=== PATIENT | male | born 1950 | race Caucasian/White ===

== ENCOUNTER 2024-11-13 10:52 | Day surgery (SDC) | payer OTHER ==
[~2024-11-13] VITALS: Ht 180.3 cm; Wt 82.4 kg
[2024-11-13] VITALS (10 sets, daily range): BP systolic 119–141; BP diastolic 79–90; PULSE 69–92; RESP 12–18; TEMP 98.1; O2SAT 92–98
[2024-11-13] MEDS ORDERED: LORazepam 0.5 MG tablet PO PRN (11:35)
[2024-11-13] MEDS ORDERED: diphenhydrAMINE 25mg capsule PO PRN (11:35)
[2024-11-13] MEDS ORDERED: normal saline 1,000 ML IV SCH (11:35)
[2024-11-13] MEDS ORDERED: midazolam 1 mg/ML 2ml injection ONE ×2 (12:46→13:47)
[2024-11-13] MEDS ORDERED: LIDOcaine 1% (10mg/ml) 2ml vial ONE (12:46)
[2024-11-13] MEDS ORDERED: fentaNYL/PF 50MCG/1 ML 2ML syringe ONE (12:46)
[2024-11-13] MEDS ORDERED: verapamil 2.5 mg/ml inj IV ONE (12:46)
[2024-11-13] MEDS ORDERED: heparin 1,000unit/ml 10ml vial 10 ML ONE (12:47)
[2024-11-13] MEDS ORDERED: iohexol 350MG/ML 100ml bottle IV ONE (12:47)
[2024-11-13] MEDS ORDERED: nitroGLYCERIN 500mcg/5mL D5W 5 ML IV ONE (12:53)
--- NOTE | 2024-11-13 12:56 | ELECTROCARDIOGRAPH REPORT ---
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 JAYLENE Moreira Measurements Intervals [place] Rate: 91 P: -2 WV: 192 QRS: -34 QRSD: 102 T: 32 QT: 399 QTc: 492 Interpretive Statements Sinus rhythm Inferior infarct, old Electronically Signed On 11-13-2024 17:36:[address] JAYLENE Moreira Please click the below link to view image of tracing.
[2024-11-13] MEDS ORDERED: ACET-1025 PO (13:32)
[2024-11-13] MEDS ORDERED: DILT-36 PO (13:32)
[2024-11-13] MEDS ORDERED: TAMS-55 PO (13:33)
[2024-11-13] MEDS ORDERED: POTA-207 PO (13:33)
[2024-11-13] MEDS ORDERED: FLEC50TA PO (13:34)
[2024-11-13] MEDS ORDERED: OMEP40CA21 PO (13:35)
[2024-11-13] MEDS ORDERED: RIVA20TA PO (13:35)
[2024-11-13] MEDS ORDERED: LOSA-418 PO (13:36)
[2024-11-13] MEDS ORDERED: DIAZ10TA4 PO (13:37)
[2024-11-13] MEDS ORDERED: BUPR150T8 PO (13:37)
[2024-11-13] MEDS ORDERED: ATOR10TA87 PO (13:38)
[2024-11-13 13:46] LABS: ALBUMIN 3.6 G/DL (3.4-5.0); ANION GAP 9 (8-16); BASOPHILS % (AUTO) 0.8 % (0-1); BLOOD UREA NITROGEN 16 MG/DL (7-18); BUN/CREATININE RATIO 21.1 (10.0-20.0); CALCIUM 8.9 MG/DL (8.5-10.1); CHLORIDE 108 MMOL/L (99-107); CREATININE 0.76 MG/DL (0.60-1.10); EOSINOPHILS # (AUTO) 0.1 X10'3 (0-0.9); EOSINOPHILS % (AUTO) 1.3 % (0-6); GLUCOSE 94 MG/DL (70-104); HEMATOCRIT 44.3 % (42.0-52.0); LYMPHOCYTES # (AUTO) 1.2 X10'3 (1.1-4.8); LYMPHOCYTES % (AUTO) 19.6 % (21-51); MEAN CORPUSCULAR HEMOGLOBIN 30.1 PG (27.0-31.0); MEAN CORPUSCULAR HGB CONC 33.9 g/dL (33.0-36.5); MEAN CORPUSCULAR VOLUME 88.8 FL (78-98); MEAN PLATELET VOLUME 7.5 FL (7.4-10.4); MONOCYTES # (AUTO) 0.5 X10'3 (0-0.9); MONOCYTES % (AUTO) 8.9 % (2-12); NEUTROPHILS # (AUTO) 4.1 X10'3 (1.8-7.7); NEUTROPHILS % (AUTO) 69.4 % (42-75); PLATELET COUNT 296 X10'3 (140-440); POTASSIUM 3.3 MMOL/L (3.5-5.1); RED BLOOD COUNT 4.98 X10'6 (4.70-6.10); RED CELL DISTRIBUTION WIDTH 15.5 % (11.5-14.5); SODIUM 145 MMOL/L (135-145); TOTAL CARBON DIOXIDE 27.9 MMOL/L (24-32); eCRCL 94 ML/MIN; eGFR > 90 ML/MIN
[2024-11-13 13:51] LABS: APTT 29 SECONDS (22-32); INR 1.1 INR; PROTHROMBIN TIME 11.1 SECONDS (9.0-12.0)
--- NOTE | 2024-11-13 14:04 | CARDIAC CATH REPORT ---
Cardiac Cath Report Providers to CC CC: PAULO AMRK MD Procedure Comments: 1. Right Heart Catheterization 2. Selective Coronary Angiography 3. Right Brachial vein access 4. Right Radial artery access Brief History/Indications: 74yo man with HTN, HLD, Afib, Severe symptomatic aortic stenosis referred for evaluation prior to consideration of AVR. Techniques: After informed consent was obtained, the patient was brought to the cardiac catheterization laboratory and prepped and draped in usual sterile fashion for left heart catheterization and other procedures mentioned above. The right wrist and right AC fossa were anesthetized with 1% Lidocaine. The right AC IV was exchanged over a wire for an 6fr sheath. The right radial artery accessed via the Seldinger technique after which a 6Fr sheath was placed. The Oneco was advanced via the right AC sheath to the right atrium, the right ventricle, the pulmonary artery, and wedge position. Through the 6Fr right radial sheath, a TIG was used to engage the left coronary artery and the right coronary artery. At the conclusion of the case the sheath was removed and hemostasis obtained with a VascBand for the radial sheath and manual compression for the brachial sheath. Findings Findings: HEMODYNAMICS: RA: 2 mmHg RV: 30/2, RVEDP 5 mmHg PA: 15/1, mPAP 7 mmHg PCWP: 1 mmHg(V-waves to 3mmHg) TP mmHg DP mmHg Ao: 92/60, MAP 68 mmHg HR: 98 bpm LV: Not obtained due to known severe PA Sat: 76% Ao Sat: 96% CO/CI (Ania): 6.74/3.33 PVR: 1 SCHUMACHER CORONARY ARTERIES: Co Dominant LMCA: Luminal Irregularities LAD: Mid 40% stenosis Dx: Luminal Irregularities LCx: Luminal Irregularities OM1: Luminal Irregularities OM2: Luminal Irregularities RCA: Luminal Irregularities PDA: Luminal Irregularities PL: Luminal Irregularities Results Results: 1. No significant obstructive CAD 2. RRA and RBV access, closed with VascBand and manual compression RECOMMENDATIONS: 1. Agree with referral to [facility] TAVR clinic for evaluation of severe, symptomatic aortic stenosis. DREW MARK MD November 13, 2024 14:04
[2024-11-13] MEDS ORDERED: HYDROcodone/acetaminophen 5mg/325mg tablet PO PRN (14:35)
[2024-11-13] MEDS ORDERED: HYDROcodone/acetaminophen 10/325mg tab PO PRN (14:35)
[2024-11-13 15:10] LABS: ISTAT HGB ART 13.9 g/dl (14.0-17.9); ISTAT Hct ART 41 %PCV (42-52); ISTAT O2 SATURATION ARTERIAL 96 % (95-98); ISTAT SOURCE BLNK
[2024-11-13 15:11] LABS: ISTAT HGB MIX 11.2 g/dl (14.0-17.9); ISTAT Hct MIX 33 %PCV (42-52); ISTAT O2 SATURATION MIX VENOUS 76 % (60-80); ISTAT SOURCE VEN
== END 2024-11-13 16:35 | disposition home or self-care (01) ==
LOC: SSTAY O 10:52
PROVIDERS: ATTEND Student in an Organized Health Care Education/Training Program
DX: I35.0 Nonrheumatic aortic (valve) stenosis (principal); I10 Essential (primary) hypertension; E78.5 Hyperlipidemia, unspecified; K21.9 Gastro-esophageal reflux disease without esophagitis; I48.91 Unspecified atrial fibrillation; I25.10 Atherosclerotic heart disease of native coronary artery without angina pectoris; Z79.899 Other long term (current) drug therapy; Z88.8 Allergy status to other drugs, medicaments and biological substances; Z86.73 Personal history of transient ischemic attack (TIA), and cerebral infarction without residual deficits
CPT/HCPCS: 36415; 80048; 82803; 85014; 85025; 85610; 85730; 93005; 93456; 99152; J1644; J2003; J2250; J3010; J3490; J7030; Q9967; 99153; A6258; A6402; A6449; C1751; C1894

== ENCOUNTER 2024-12-12 10:32 | Outpatient (CLI) | payer OTHER ==
[~2024-12-12 10:32] MED LIST: ACET-1025 PO; ATOR10TA87 PO; BUPR150T8 PO; DIAZ10TA4 PO; DILT-36 PO; FLEC50TA PO; IODIXANOL 320 MG/ML INFUS..BTL 100ML IV ONE; LOSA-418 PO; OMEP40CA21 PO; POTA-207 PO; RIVA20TA PO; TAMS-55 PO
[2024-12-12 11:11] LABS: BASOPHILS # (AUTO) 0.1 X10'3 (0-0.2); BASOPHILS % (AUTO) 1.3 % (0-1); EOSINOPHILS # (AUTO) 0.1 X10'3 (0-0.9); EOSINOPHILS % (AUTO) 1.6 % (0-6); HEMATOCRIT 46.1 % (42.0-52.0); HEMOGLOBIN 15.5 g/dl (14.0-17.9); LYMPHOCYTES # (AUTO) 1.4 X10'3 (1.1-4.8); LYMPHOCYTES % (AUTO) 22.1 % (21-51); MEAN CORPUSCULAR HEMOGLOBIN 30.1 PG (27.0-31.0); MEAN CORPUSCULAR HGB CONC 33.7 g/dL (33.0-36.5); MEAN CORPUSCULAR VOLUME 89.1 FL (78-98); MEAN PLATELET VOLUME 7.8 FL (7.4-10.4); MONOCYTES # (AUTO) 0.6 X10'3 (0-0.9); MONOCYTES % (AUTO) 9.1 % (2-12); NEUTROPHILS # (AUTO) 4.1 X10'3 (1.8-7.7); NEUTROPHILS % (AUTO) 65.9 % (42-75); PLATELET COUNT 302 X10'3 (140-440); RED BLOOD COUNT 5.17 X10'6 (4.70-6.10); RED CELL DISTRIBUTION WIDTH 14.1 % (11.5-14.5); WHITE BLOOD COUNT 6.2 X10'3 (4.5-11.0)
[2024-12-12 11:20] LABS: APTT 42 SECONDS (22-32); INR 1.5 INR
[2024-12-12 11:30] LABS: ALANINE AMINOTRANSFERASE 29 U/L (12-78); ALBUMIN 3.7 G/DL (3.4-5.0); ALBUMIN/GLOBULIN RATIO 1.4 (1.1-1.5); ALKALINE PHOSPHATASE 60 IU/L (46-116); ANION GAP 7 (8-16); ASPARTATE AMINO TRANSFERASE 12 U/L (10-37); BILIRUBIN,TOTAL 0.6 MG/DL (0.1-1.0); BLOOD UREA NITROGEN 10 MG/DL (7-18); BUN/CREATININE RATIO 10.8 (10.0-20.0); CALCIUM 9.3 MG/DL (8.5-10.1); CHLORIDE 103 MMOL/L (99-107); CREATININE 0.93 MG/DL (0.60-1.10); GLUCOSE 97 MG/DL (70-104); PRO BRAIN NATRIURETIC PEPTIDE 147 PG/ML (0-125); SODIUM 140 MMOL/L (135-145); TOTAL CARBON DIOXIDE 30.2 MMOL/L (24-32); TOTAL PROTEIN 6.3 G/DL (6.4-8.2); eGFR 80 ML/MIN
--- NOTE | 2024-12-12 12:19 | RADIOLOGY REPORT ---
EXAM: DI CHEST,TWO VIEWS CLINICAL HISTORY: SOB; NONRHEUMATIC AORTIC VALVE STENOSIS COMPARISON: None TECHNIQUE: Frontal and lateral view of the chest was obtained FINDINGS: Lines and Tubes: None Lungs: No focal consolidation. Pleura: No effusion. No pneumothorax. Cardiomediastinal contours: Unremarkable. Atherosclerotic vascular calcifications of the thoracic ao rta are noted. Bones: No acute osseous abnormality. IMPRESSION: No acute cardiopulmonary disease.
--- NOTE | 2024-12-13 17:06 | RADIOLOGY REPORT ---
Procedure: CT CTA TAVR Reason for study/Clinical History: Chest pain, evaluate for dissection. Comparison Study: None Exam Date: 12/12/2024 12:11 PM TECHNIQUE: Multiplanar reformatted images were generated from volumetric data acquired on a multidetector CT [facility]. Cardiac gating was utilized. Arterial phase images were obtained through the chest, abdomen and pelvis following intravenous administration of contrast material. 100 mL visipaque [address] dose reduction techniques were utilized. 3-D reconstructions were performed on an independent work station. Radiation Dose Information: CT Dose: CTDI volume is 65 mGy. Dose-length product is 2104 mGy*cm FINDINGS: Vascular: Aortic measurements: Aortic annulus: 30.2 x 27.3 mm Sinus of valsalva: right cusp 36.5 mm, left cusp 37.3 mm, non-coronary cusp 38.4 mm Right coronary distance: 24.6 Left coronary distance: 16 ST junction 35.3 mm Ascending aorta 41.3 mm Aortic arch 28 mm Descending aorta 23 mm Aortic hiatus 24 mm Upper abdominal aorta 22 mm Minimal abdominal aorta 16.6 mm Right common iliac 9.69 mm, tortuosity index 2.21 Left common iliac 8.24 mm, tortuosity index 1.41 Ascending aortic aneurysm measuring up to 41 mm. No aortic dissection. Aortic arch anatomy is convent ional. There is conventional coronary artery anatomy. Scattered calcified atherosclerotic plaque. No central pulmonary embolism. There is normal dimension of the main pulmonary artery. Heart is normal. There are no intracardiac filling defects. No pericardial effusion. Mediastinum: There is no significant intrathoracic or axillary lymphadenopathy by CT size criteria. Lungs: Atelectasis and scarring in the lung bases. Pleura: No effusion or pneumothorax. Chest wall: No acute abnormality. Abdomen and Pelvis: Liver: Normal in appearance. Gallbladder: Normal in appearance. Spleen: Normal in appearance. Pancreas: Normal in appearance. Adrenals: Normal in appearance. Kidneys: Bilateral renal cysts. No hydronephrosis. Bowel: No evidence of obstruction. Sigmoid diverticulosis. Peritoneum: Large loculated fluid collection in the left pelvis measuring up to 75 mm. Lymph nodes: No lymphadenopathy by CT size criteria. Pelvic structures: No pelvic mass. Bones: Extensive postsurgical changes in the lower thoracic and throughout the lumbar spine. IMPRESSION: 1. TAVR planning with vascular measurements as described above. 2. Ascending aortic aneurysm measuring up to 41 mm. 3. Large collection in the left lower quadrant measuring up to 75 mm. This could be aspirated with ul trasound guidance. 4. Bilateral renal cysts. Sigmoid diverticulosis. HS:Y
== END 2024-12-12 23:59 | disposition home or self-care (01) ==
LOC: RAD 10:32
PROVIDERS: ATTEND Internal Medicine Cardiovascular Disease
DX: I71.21 Aneurysm of the ascending aorta, without rupture (principal); I35.0 Nonrheumatic aortic (valve) stenosis; R06.02 Shortness of breath; I65.29 Occlusion and stenosis of unspecified carotid artery; N28.1 Cyst of kidney, acquired; K57.30 Diverticulosis of large intestine without perforation or abscess without bleeding; I70.0 Atherosclerosis of aorta
CPT/HCPCS: 36415; 71046; 71275; 74174; 75572; 80053; 83880; 85025; 85610; 85730; Q9967

== ENCOUNTER 2025-01-17 07:49 | Inpatient (IN) | payer OTHER ==
--- NOTE | 2025-01-11 10:25 | ELECTROCARDIOGRAPH REPORT ---
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 Reuben Bender Measurements Intervals [place] Rate: 64 P: 59 [place]: 190 QRS: 5 QRSD: 119 T: 58 QT: 454 QTc: 469 Interpretive Statements Sinus rhythm Incomplete left bundle branch block Electronically Signed On 01-12-2025 12:02:[address] Reuben Bender Please click the below link to view image of tracing.
[2025-01-11 10:38] LABS: MEAN PLATELET VOLUME 7.5 FL (7.4-10.4); PRE OP HEMATOCRIT 44.8 % (42.0-52.0); PRE OP HEMOGLOBIN 15.4 g/dL (14.0-17.9); PRE OP PLATELET COUNT 262 X10'3 (140-440); PRE OP WHITE BLOOD COUNT 5.5 10'3 (4.8-10.8); RED CELL DISTRIBUTION WIDTH 13.6 % (11.5-14.5)
[2025-01-11 10:50] LABS: PRE OP INR 1.3 INR; PRE OP PROTIME 12.8 SECONDS (9.0-12.0)
[2025-01-11 10:55] LABS: LEUKOCYTE ESTERASE ,URINE NEGATIVE (Neg); NITRITES, URINE NEGATIVE (Neg); OCCULT BLOOD,URINE NEGATIVE (Neg); PRE OP PARTIAL THROMB. TIME 39.0 SECONDS (22-32)
[2025-01-11 10:59] LABS: CREATININE 0.69 MG/DL (0.60-1.10); PRE OP ALT 29 U/L (30-65); PRE OP ANION GAP 4 (8-16); PRE OP AST 16 U/L (10-37); PRE OP BILIRUB, TOTAL 0.5 MG/DL (0.0-1.0); PRE OP GLUCOSE 86 MG/DL (70-104); PRE OP POTASSIUM 3.7 MMOL/L (3.4-5.1); PRE OP SODIUM 141 MMOL/L (135-145); PRO BRAIN NATRIURETIC PEPTIDE 241 PG/ML (0-125); TOTAL CARBON DIOXIDE 30.9 MMOL/L (24-32); eGFR > 90 ML/MIN
[2025-01-11 11:02] LABS: UA COLLECTION TYPE NON-SPECIFIED
--- NOTE | 2025-01-11 12:05 | RADIOLOGY REPORT ---
DI CHEST,TWO VIEWS CLINICAL HISTORY: PREOP, pain COMPARISON: DI CHEST,TWO VIEWS on DOS: 12/12/24 TECHNIQUE: Frontal and lateral view of the chest was obtained FINDINGS: Lines and Tubes: None Lungs: No focal consolidation. Pleura: No effusion. No pneumothorax. Cardiomediastinal contours: Unremarkable Bones: No acute osseous abnormality. IMPRESSION: No acute cardiopulmonary disease.
[2025-01-17] VITALS (37 sets, daily range): BP systolic 112–186; BP diastolic 7–108; PULSE 58–108; RESP 10–16; TEMP 97.6–98.4; O2SAT 95–100
[~2025-01-17] VITALS: Ht 180.3 cm; Wt 84.1 kg
[~2025-01-17 07:49] MED LIST changes: -IODIXANOL 320 MG/ML INFUS..BTL 100ML IV ONE; +ondansetron/PF 4mg/2ml inj IV PRN; +protamine sulfate 10mg/ml inj. ONE
[2025-01-17] MEDS: ceFAZolin 2gm/dext,iso 50mL 50 ML IV ONE (09:02)
[2025-01-17] MEDS: VANCOMYCIN/H2O 1.5g/300mL PB 300 ML IV ONE (09:04)
[2025-01-17] MEDS: ringers solution, lacted 1,000 ML IV SCH ×2 (09:04→12:06)
[2025-01-17] MEDS ORDERED: LIDOcaine 1% 30ml preserv. free vial ONE (09:20)
[2025-01-17] MEDS ORDERED: heparin 1,000 UNITS/NS 500ml 1,500 ML ONE (09:21)
[2025-01-17] MEDS ORDERED: midazolam 1 mg/ML 2ml injection ONE (09:46)
[2025-01-17] MEDS ORDERED: propofol inj 20 ML IV ONE (09:50)
[2025-01-17] MEDS ORDERED: LIDOcaine 1%/PF 5ML 10 MG/ML VIAL ONE (09:50)
[2025-01-17] MEDS ORDERED: acetaminophen 1,000mg/100ml IV 100 ML IV PRN (10:10)
[2025-01-17] MEDS ORDERED: meperidine/PF 25mg/ml syringe IV PRN (10:10)
[2025-01-17] MEDS ORDERED: ondansetron/PF 4mg/2ml inj IV PRN ×2 (10:10→11:55)
[2025-01-17] MEDS ORDERED: LIDOcaine 1% (10mg/ml) 2ml vial ONE (10:30)
[2025-01-17] MEDS ORDERED: potassium Cl 20 mEq SR tablet PO PRN (11:55)
[2025-01-17] MEDS ORDERED: potassium Cl 20mEq/100mL bag 100 ML IV PRN (11:55)
[2025-01-17] MEDS ORDERED: docusate sod 100mg capsule PO PRN (11:55)
[2025-01-17] MEDS ORDERED: potassium Cl 40MEQ/270ML bag 250 ML IV PRN (11:55)
[2025-01-17] MEDS ORDERED: labetalol 20mg/4ml (5mg/ml) syringe IV PRN (11:55)
[2025-01-17] MEDS ORDERED: magnesium sulf-water 2g/50mL 50 ML IV PRN (11:55)
[2025-01-17] MEDS ORDERED: magnesium sulf-water 4G/100mL 100 ML IV PRN (11:55)
[2025-01-17] MEDS ORDERED: ALPRAZolam 0.25mg tablet PO PRN (11:55)
[2025-01-17] MEDS ORDERED: pantoprazole 40mg Tablet.DR PO PRN (11:55)
[2025-01-17] MEDS ORDERED: potassium CL 10mEq/100ml bag 100 ML IV PRN (11:55)
[2025-01-17] MEDS ORDERED: potassium Cl 40MEQ/1/2NS 520ml 520 ML IV PRN (11:55)
[2025-01-17] MEDS: LIDOcaine 1% (10mg/ml) 2ml vial ONE (12:00)
--- NOTE | 2025-01-17 12:00 | ELECTROCARDIOGRAPH REPORT ---
[facility] Test Date: 2025-01-17 Test Time: 11:58:17 Pat Name: MIKI ENCINAS Department: SHORT STAY 1ST FLOOR Room: [place] [address] Gender: M Management Expert: : 1950 Requested By: DREW MARK Order Number: [id number] Reading MD: Dr. JAYLENE Moreira Measurements Intervals [place] Rate: 104 P: 70 OK: 161 QRS: -40 QRSD: 93 T: -25 QT: 377 QTc: 496 Interpretive Statements Sinus tachycardia Left axis deviation Low voltage, extremity leads Minimal ST depression, lateral leads Borderline prolonged QT interval Electronically Signed On 01-18-2025 15:36:[address] JAYLENE Moreira Please click the below link to view image of tracing.
--- NOTE | 2025-01-17 12:00 | OPERATIVE REPORT ---
Operative Report Providers to CC CC: PAULO GRANGER MD ~ Date of Procedure: Jan 17, 2025 Pre-Operative Diagnosis: Severe Aortic Stenosis Post-Operative Diagnosis SAME as PRE-Op Procedure Performed 1. Ultrasound-guided access, bilateral femoral vessels. 2. Bilateral femoral angiography. 3. Ascending aortography. 4. Temporary transvenous pacer to the RV apex. 5. Placement of a 29 mm Navarro S3 Resilia valve. Surgeon: Drew Granger MD Front Office Java Developer MD Dr. Hua Pfeiffer MD Anesthesiologist: Navin Pro Type of Anesthesia: General Findings: Severe Aortic Stenosis Complications None Prosthetics\Implants used: Navarro 29mm S3 Resilia Estimated Blood Loss: Minimal Specimen Removed: None Description of Procedure: The patient was brought to the laboratory associate in a fasting state. They underwent MAC anesthesia. Ultrasound was used to guide access to the bilateral femoral vessels, 7-Welsh sheath, left femoral artery, 6-Welsh sheath, right femoral artery and left femoral vein. Bilateral femoral angiograms were obtained. Heparin was given to maintain an ACT over 250 seconds. The patient was brought to the laboratory associate in a fasting state. They underwent MAC associated anesthesia. A left radial arterial line was placed. Ultrasound was used to guide access to the bilateral femoral vessels, 7-Welsh sheath, right femoral artery, 6-Welsh sheath, left femoral artery and vein. Bilateral femoral angiograms were obtained. Heparin was given to maintain an ACT over 250 seconds. Two crisscross Percloses were placed on the right. We upsized to an 8-Welsh sheath. Two pigtail catheters placed in the ascending aorta. Ascending aortography done to determine the angle of deployment. Temporary transvenous pacer to the RV apex and confirmed capture. We upsized an 8-Welsh sheath to a 16-Welsh Navarro eSheath on the right. We crossed the aortic valve using a straight stiff exchange length Terumo wire supported by a 6-Welsh AL1 catheter. LV AO pressures were recorded. A Cook extra support wire was placed in the left ventricle. A 29 mm Navarro S3 Resilia valve was brought to position and under rapid right ventricular pacing was deployed. Post-procedure, there was no AI and no residual . Guidewires and balloons were removed at this time. The temporary pacer was removed. The 16-Welsh Navarro eSheath was removed and two crisscross Percloses tied with adequate hemostasis. The arterial sheath on the left was removed and a single Perclose tied. The venous sheath on the left was removed and a single Angioseal used for hemostasis. Protamine was given to reverse the effects of heparin. The patient was stable post-procedure. Good pulses in the legs and no evidence of bleeding, transferred to the PACU in stable condition. HEMODYNAMICS: See procedure log RESULTS: 1. Successful placement of a 29 mm Navarro S3 Resilia valve, right transfemoral approach, two perclose devices. Resume OAC in AM if no signs/symptoms of bleeding 2. Atrial Fibrillation: OAC as above 3. Chronic back pain. Extensive back surgeries. Allergic to multiple pain meds. Cont Tylenol 4. Left pelvic fluid collection. Advised to f/u with spine surgeon given previously drained fluid collection They will be watched in the recovery area until stable, then transferred to telemetry at that time. DREW GRANGER MD Jan 17, 2025 12:00
[2025-01-17] MEDS: nitroPRUSSIDE (NIPRIDE) (200MCG/ML) 100ML Drip IV SCH (12:08)
[2025-01-17] MEDS: hydrALAZINE 20mg/ml inj. IV PRN (12:08)
[2025-01-17] MEDS: labetalol 20mg/4ml (5mg/ml) syringe IV PRN (12:25)
[2025-01-17] MEDS: phenylephrine inj 50 MG in normal saline 250ml IV solN IV SCH (12:41)
[2025-01-17] MEDS: enalaprilat 1.25mg/ml 2ml vial IV PRN (13:00)
[2025-01-17] MEDS: diltiazem CD 180mg cap (once-daily) PO SCH (13:32)
--- NOTE | 2025-01-17 14:54 | CARDIOLOGY REPORT ---
APPROVED REPORT EXAM: Focused, limited intraprocedural transthoracic 2D, spectral and color flow Doppler echocardiogr am during TAVR deployment. Patient Location: [facility] Blood Pressure: 148 / 95 mmHg Heart Rate: 77 bpm Rhythm: SINUS Indications SEVERE AORTIC STENOSIS HYPERTENSION ATRIAL FIBRILLATION 29mm Navarro Carlita 3 Ultra RESILIA Bioprosthetic TAVR Surface Supply Breathing Apparatus: MD ANNIE / Interventionalist: Jose Manuel Granger MD and Williams Rankin MD. / Surgeon: Nat aguilar MD. / Device rep:Castillo SERNA ELS Previous echo: 11/24/24 CVC EN EF: 67%; MAICOL: 0.9; PKV: 4.06; GRAD: 66 /41 ; LVOT 2.11; Aleisha'; trMR; trT R LEFT VENTRICLE Normal LV size and function. Mild concentric hypertrophy. LVEF is 60%.? TDS RIGHT VENTRICLE RV is normal size and function. ATRIA Left atrium appears mildly dilated. AORTIC VALVE Poorly visualized AV appears at least moderately calcified with significant stenosis demonstrated by reduced excursion and increased transvalvular and ascending aorta turbulance. Limited Doppler interro gation reveals: MAICOL: 0.9 cmsq; Pkv: 3.37 m/sec; Gradients: 45/25 mmHG. POST DEPLOYMENT (LOOP:34 ):29 mm Navarro Carlita 3 Ultra Resilia bioprosthetic TAVR appears well seated with normal function. ? Trac e paravalvular leak possibly present at 6 o'clock in TTE SAX BASE. MAICOL is measured at 4.00 cmsq. Peak / mean gradients of 9 / 4 mmHG. Peak velocity is measured at 1.52 m/sec. TDS - poor imaging and Dopp ler windows with supine positioning. MITRAL VALVE Limited MV visualization without obvious stenosis. ?Trace regurgitation. Poor visualization. TRICUSPID VALVE TV appears structurally normal with trace regurgitation.
[2025-01-17] MEDS: hydrALAZINE 20mg/ml inj. IV ONE (15:25)
[2025-01-17] MEDS: ceFAZolin 1GM/D5W- ADD-VANTAGE 50 ML IV SCH (16:04)
[2025-01-17] MEDS: sod chloride 0.9% 10ml flush syringe IV SCH (16:09)
[2025-01-17] MEDS: normal saline 1000ml 1,000 ML IV SCH (16:36)
[2025-01-17] MEDS: potassium Cl 20 mEq SR tablet PO SCH (21:24)
[2025-01-17] MEDS: vancomycin/NS 1 GM ADD-VANTAGE 250 ML IV SCH (21:26)
[2025-01-18 02:00] VITALS: BP 134/83; PULSE 85; RESP 16; TEMP 97.8; O2SAT 96
[2025-01-18 06:00] VITALS: BP 139/86; PULSE 80; RESP 13; TEMP 97.6; O2SAT 96
[2025-01-18 06:38] LABS: MEAN PLATELET VOLUME 7.8 FL (7.4-10.4); RED CELL DISTRIBUTION WIDTH 13.8 % (11.5-14.5)
--- NOTE | 2025-01-18 06:49 | RADIOLOGY REPORT ---
CHEST RADIOGRAPH Indication: s/p TAVR Technique: Single frontal view of the chest was obtained COMPARISON: DI CHEST,TWO VIEWS on DOS: 01/11/25, DI CHEST,TWO VIEWS on DOS: 12/12/24 FINDINGS: Lines and Tubes: None Lungs: Clear Pleura: No effusion. No pneumothorax. Cardiomediastinal contours: Post TAVR Bones: Unremarkable IMPRESSION: No acute disease.
[2025-01-18 07:09] LABS: CREATININE 0.84 MG/DL (0.60-1.10); PRO BRAIN NATRIURETIC PEPTIDE 669 PG/ML (0-125); TOTAL CARBON DIOXIDE 24.7 MMOL/L (24-32); eCRCL 85 ML/MIN; eGFR 90 ML/MIN
--- NOTE | 2025-01-18 07:52 | ELECTROCARDIOGRAPH REPORT ---
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 JAYLENE Moreira Measurements Intervals Street Rate: 64 P: 4 TN: 208 QRS: -13 QRSD: 97 T: -13 QT: 446 QTc: 461 Interpretive Statements Sinus rhythm Borderline T abnormalities, inferior leads Electronically Signed On 01-19-2025 13:05:[address] JAYLENE Moreira Please click the below link to view image of tracing.
[2025-01-18 08:00] VITALS: RESP 14; O2SAT 96
[2025-01-18] MEDS ORDERED: diltiazem CD 180mg cap (once-daily) PO SCH (08:00)
[2025-01-18] MEDS: pantoprazole 40mg Tablet.DR PO SCH (08:16)
[2025-01-18] MEDS: buPROPion SR 150mg tablet PO SCH (08:17)
[2025-01-18 08:18] VITALS: BP_SYST 139; PULSE 80
--- NOTE | 2025-01-18 14:31 | DISCHARGE SUMMARY ---
Discharge Summary Providers to CC ~ Discharge Summary Admission Diagnosis: Severe Aortic Stenosis Hospital Course DATE OF ADMISSION: 01/17/25 DATE OF DISCHARGE: 01/18/25 Discharge Diagnosis\Comment: Aortic stenosis status post TAVR Atrial fibrillation Chronic back pain Left pelvic fluid collection. Advised to follow up with spine surgeon Operations\Procedures: 1. Ultrasound-guided access, bilateral femoral vessels. 2. Bilateral femoral angiography. 3. Ascending aortography. 4. Temporary transvenous pacer to the RV apex. 5. Placement of a 29 mm Navarro S3 Resilia valve. Consultants: No consultants Complications: No complications Condition on DC: Stable Continued Medications: Acetaminophen (Tylenol Extra Strength) 500 Mg Tablet 2 TAB PO Q6H PRN PRN for pain or fever for 7 Days, #56 TAB Atorvastatin Calcium* (Lipitor*) 10 Mg Tablet 1 TAB PO DAILY for 30 Days, #30 TAB Bupropion Hcl SR* (Wellbutrin SR*) 150 Mg Tablet.sa 1 TAB PO DAILY, TAB LOOK-ALIKE SOUND-ALIKE DRUG buSPIRone & buPROPion Diazepam (Diazepam) 10 Mg Tablet 1 TAB PO DAILY PRN for anxiety for 30 Days, #60 TAB 0 Refills Diltiazem HCl (Diltiazem 24Hr Cd) 180 Mg Cap.er.24h 1 CAP PO DAILY Flecainide Acetate (Flecainide Acetate) 50 Mg Tablet 1 TAB PO Q12H for 30 Days, #60 TAB 0 Refills Losartan Potassium (Cozaar) 100 Mg Tablet 1 TAB PO DAILY for 30 Days, #30 TAB 0 Refills Omeprazole (Prilosec) 40 Mg Capsule 1 CAP PO DAILY for 30 Days, #30 CAP Potassium Chloride* (K-Dur*) 20 Meq Tab.prt.sr 1 TAB PO Q12H for 30 Days, #60 TAB Rivaroxaban (Xarelto) 20 Mg Tablet 1 TAB PO DAILY for 30 Days, #30 TAB 0 Refills with food Tamsulosin Hcl* (Flomax*) 0.4 Mg Cap.sr.24h 1 CAP PO DAILY for 30 Days, #30 CAP Discharge Summary: This is a 74-year-old male with past medical history significant for severe, symptomatic aortic stenosis, hypertension, hyperlipidemia, atrial fibrillation, chronic back pain with multiple spine surgeries. Presented for planned TAVR. Underwent placement of a 29 mm Navarro S3 resilient valve via the right transfemoral approach. Please see Dr. Hannah Granger's dictation for further details on the procedure. Patient was monitored overnight in the telemetry unit. Has remained hemodynamically stable. No chest pain or pressure. No s hortness a breath. No dizziness, lightheadedness or syncope. Has been up and ambulatory without complaints. Postoperative testing included an EKG that demonstrates sinus rhythm. Echocardiogram was reviewed by Dr. Jose Manuel Granger and patient was deemed stable for discharge home. Chest x-ray without acute cardiopulmonary pathology. Physical exam prior to discharge: General: Awake, alert, oriented. No apparent distress Neck: Supple. Normal range of motion. No JVD Respiratory: Lungs are clear to auscultation bilaterally. No respiratory distress. Chest: Normal shape and size. No accessory muscle use. Cardiovascular: Regular rate and rhythm. S1-S2. No murmur, gallop, rub. Gastrointestinal: Abdomen is soft. Nontender to palpation. Bowel sounds present. Extremities: No lower extremity edema, cyanosis or clubbing. Femoral cath sites with dressings clean dry and intact. No ecchymosis or swelling. Dorsalis pedis pulses are palpable and plus two. Neurologic: Alert and oriented x4. Nonfocal Psychiatric: Normal mood and affect. Skin: Normal color. Warm and dry. Plan: Patient is being discharged home in stable condition. He will follow up as scheduled. Reviewed with Dr. Jamey Granger who is in agreement with the above. *Problems/Diagnosis: (1) Atrial fibrillation (2) Chronic back pain (3) Aortic stenosis Total Time Spent on D/C: > 30 Minutes Counseling Services Smoking & Tobacco Cessation: N/A Supervising MD Co-signing Provider: DOMINIQUE Ramirez NP Jan 18, 2025 14:31
--- NOTE | 2025-01-19 21:15 | CARDIOLOGY REPORT ---
APPROVED REPORT EXAM: Limited 2D, Doppler, and color-flow Echocardiogram. Patient Location: 302 Blood Pressure: 134/83 mmHg Heart Rate: 68 bpm Rhythm: NSR Indications ONE DAY FOLLOW-UP TAVR 29 mm Navarro Carlita 3 Ultra RESILIA Bioprosthetic TAVR Physical Security Manager: Aung Gragner MD [facility]; MAICOL 4.0; Peak v 1.52; Grad 9/4 2D Dimensions LVOT Diameter 2.90 (1.8-2.4cm) IVC 18.35 mm Aortic Valve AoV Peak Juan Luis. 202.6 cm/s AoV VTI 41.8 cm AO Peak GR. 16.4 mmHg AO Mean GR. 9 mmHg LVOT VTI 25.00 cm LVOT Peak Juan Luis. 115.1 cm/s MAICOL(VTI)/BSA 3.94 cm2/m2 MAICOL (VTI) 3.94 cm2 Mitral Valve MV Peak Gr. 3 mmHg MV PHT 68 ms MVA (PHT) 3.24 cm2 MV VMax88.1 cm/s Tricuspid Valve TR P. Velocity 185 cm/s RAP ESTIMATE 10 mmHg TR Peak Gr. 14 mmHg RVSP 24 mmHg LEFT VENTRICLE LV appears normal in size with mild concentric hypertrophy. Overall systolic function appears normal. LVEF is 65%. RIGHT VENTRICLE RV appears normal in size and function. AORTIC VALVE 29 mm Navarro Carlita 3 Ultra RESILIA Bioprosthetic TAVR appears well seated. MAICOL: 3.94 cmsq; Pkv: 2.0 3 m/sec; Gradients: 16/9 mmHG. No apparent paravalvular leaks noted. MITRAL VALVE MV is thickened with mild annular calcification and no stenosis. Trace mitral regurgitation. TRICUSPID VALVE The tricuspid valve is normal in structure. Trace tricuspid regurgitation. GREAT VESSELS The IVC is normal in size and collapses >50% with inspiration. PERICARDIUM Trivial anterior pericardial effusion with no evidence of hemodynamic compromise. Other Information Study Quality: Fair Conclusion LV appears normal in size with mild concentric hypertrophy. Overall systolic function appears normal. LVEF is 65%. RV appears normal in size and function. 29 mm Navarro Carlita 3 Ultra RESILIA Bioprosthetic TAVR appears well seated. MAICOL: 3.94 cmsq; Pkv: 2.0 3 m/sec; Gradients: 16/9 mmHG. No apparent paravalvular leaks noted. MV is thickened with mild annular calcification and no stenosis. Trace mitral regurgitation. The tricuspid valve is normal in structure. Trace tricuspid regurgitation. Trivial anterior pericardial effusion with no evidence of hemodynamic compromise.
== END 2025-01-18 15:06 | disposition home or self-care (01) | DRG 267 ==
LOC: PAS IN 07:49 → PCU 3S 15:36
PROVIDERS: ADMIT Internal Medicine Cardiovascular Disease; ATTEND Internal Medicine Cardiovascular Disease
PROC: B41D1ZZ Fluoroscopy of Aorta and Bilateral Lower Extremity Arteries using Low Osmolar Contrast (ICD-10-PCS; 2025-01-17)
PROC: 03HY32Z Insertion of Monitoring Device into Upper Artery, Percutaneous Approach (ICD-10-PCS; 2025-01-17)
PROC: 02RF38Z Replacement of Aortic Valve with Zooplastic Tissue, Percutaneous Approach (ICD-10-PCS; principal; 2025-01-17 10:26)
DX: I35.0 Nonrheumatic aortic (valve) stenosis (principal); Z00.6 Encounter for examination for normal comparison and control in clinical research program; I10 Essential (primary) hypertension; I48.91 Unspecified atrial fibrillation; E78.5 Hyperlipidemia, unspecified; G89.29 Other chronic pain; M54.9 Dorsalgia, unspecified; Z79.01 Long term (current) use of anticoagulants; Z88.5 Allergy status to narcotic agent; Z88.2 Allergy status to sulfonamides; Z88.8 Allergy status to other drugs, medicaments and biological substances
CPT/HCPCS: 33361; 36415; 71045; 71046; 76937; 80053; 81003; 82948; 83735; 83880; 85025; 85347; 85610; 85730; 86885; 86900; 86901; 86920; 87081; 93005; 93308; A4618; A6258; A6449; C1756; C1758; C1760; C1769; C1894; G0378; J0360; J0690; J1100; J1171; J1644; J2003; J2250; J2371; J2405; J2704; J2710; J2720; J3373; J3375; J3490; J7030; J7040; J7050; J7120; Q9967